=== PATIENT | female | born 1995 | race Caucasian/White ===

== ENCOUNTER 2018-10-09 17:19 | Emergency (ER) | payer SELFPAY ==
[~2018-10-09] VITALS: Ht 165.1 cm; Wt 87.1 kg
[2018-10-09 17:23] VITALS: BP 122/85
== END 2018-10-09 18:51 | disposition home or self-care (01) ==
LOC: ED 17:19
DX: J03.90 Acute tonsillitis, unspecified (principal); Z90.49 Acquired absence of other specified parts of digestive tract; Z98.890 Other specified postprocedural states

== ENCOUNTER 2018-10-23 16:45 | Emergency (ER) | payer SELFPAY ==
[~2018-10-23] VITALS: Ht 165.1 cm; Wt 88.0 kg
[2018-10-23 16:46] VITALS: Ht 165.1 cm; Wt 88.0 kg
[2018-10-23 18:26] LABS: BASOPHIL % 0.4 % (0-2); PLATELET COUNT 367 x10^3mcL (130-400); RED CELL DISTRIBUTION WIDTH 13.2 % (11.5-14.5)
[2018-10-23 18:47] VITALS: BP 122/67
== END 2018-10-23 18:47 | disposition home or self-care (01) ==
LOC: ED 16:45
PROVIDERS: Emergency Medicine
DX: N93.9 Abnormal uterine and vaginal bleeding, unspecified (principal)
CPT/HCPCS: 36415